=== PATIENT | male | born 1960 | race Caucasian/White ===

== ENCOUNTER 2018-12-01 12:29 | Day surgery (SDC) | payer BC ==
[2018-12-01 09:49] LABS: Absolute Lymphocytes (CBC) 1.1 K/uL (0.7-4.9); Absolute Monocytes 0.5 K/uL (0.1-1.3); Absolute Neutrophil 2.5 K/uL (1.8-8.0); Basophils % 0.9 % (0-1.3); Eosinophils % 3.3 % (0-4.4); Hematocrit 38.1 % (39.6-49.0); Lymphocytes % 25.9 % (15.3-44.8); MPV 8.6 fL (7.6-11.3); Monocytes % 12.3 % (3.3-12.3); RBC Red Blood Cell Count 4.08 M/uL (4.33-5.43)
[2018-12-01 09:52] LABS: BUN Blood Urea Nitrogen 17 mg/dL (7-18); Bicarbonate 31 mmol/L (21-32); Glucose Level 78 mg/dL (74-106); Potassium 4.3 mmol/L (3.5-5.1); Sodium Level 144 mmol/L (136-145)
--- NOTE | 2018-12-01 10:10 | RAD REPORT ---
EXAM DESCRIPTION: Samaria Ng (2 Views)12/01/2018 9:36 am CLINICAL HISTORY: Preop COMPARISON: 2010 FINDINGS: The lungs appear clear of acute infiltrate. The heart is normal size IMPRESSION: No acute abnormalities displayed
[2018-12-01] MEDS ORDERED: Ringers Lactate 1,000 ML IV ONE (12:50)
[2018-12-01] MEDS ORDERED: LIDOCAINE 2% MPF 5 ML VIAL ONE (14:07)
[2018-12-01] MEDS ORDERED: PROPOFOL 200 MG/20 ML VIAL IV ONE (14:07)
[2018-12-01] MEDS ORDERED: FENTANYL CITR 100 MCG/2 ML ONE (14:07)
[2018-12-01] MEDS ORDERED: MIDAZOLAM HCL 2 MG/2 ML INJ ONE (14:08)
[2018-12-01] MEDS ORDERED: ONDANSETRON 4 MG/2 ML VIAL ONE (14:11)
[2018-12-01] MEDS ORDERED: CEFAZOLIN/SWI 1gm 1 GM/10 ML SYR ONE (14:14)
[2018-12-01] MEDS: HYDROCODONE/APAP 7.5/325 MG TAB ONE ×2 (14:25→16:00)
--- NOTE | 2018-12-01 14:44 | P.BOP ---
Preoperative diagnosis: Prolapsed thrombosed necrotic external hemorrhoids Postoperative diagnosis: same, int and ext hemorrhoid Primary procedure: EUA. anoscopy, rigid proctoscopy, hemorrhoidectomy x 2 bundles Estimated blood loss: <10cc Specimen: hemorrhoid x2 Findings: see dictation Anesthesia: General Complications: None Transferred to: Recovery Room Condition: Good
[2018-12-01] MEDS: HYDROMORPHONE HCL 1 MG/ML INJ ONE ×2 (15:00→15:06)
[2018-12-01] MEDS: HYDROMORPHONE HCL 2 MG/ML inj ONE ×2 (15:12→15:20)
--- NOTE | 2018-12-01 15:18 | EKG ---
Test Date: 2018-12-01 Test Time: 09:25:20 Card Doffer: RISHI MEASUREMENT RESULTS: Intervals: Rate: 52 MI: 158 QRSD: 108 QT: 452 QTc: 420 [place]: P: MI: 158 QRS: 161 T: 148 INTERPRETIVE STATEMENTS: suspected arm lead reversal, please repeat ECG Sinus bradycardia Right axis deviation Right ventricular hypertrophy Abnormal ECG Compared to ECG 08/19/2010 19:31:23 Right-axis deviation now present Right ventricular hypertrophy now present Sinus rhythm no longer present all of these interval changes are likely due to arm lead reversal; Electronically Signed On 12-01-18 15:17:25 CDT by Devante Siegel
--- NOTE | 2018-12-02 01:27 | OP ---
Date of Procedure: 12/01/2018 Surgeon: Benson Haynes MD Preoperative Diagnosis: Prolapsed, thrombosed, necrotic external hemorrhoids. Postoperative Diagnoses: Prolapsed, thrombosed, necrotic external hemorrhoids plus internal and exte rnal hemorrhoids. Procedure Performed: Examination under anesthesia, anoscopy, rigid proctoscopy, and hemorrhoidectomy , 2 bundles. Specimens: Hemorrhoids x2. Anesthesia: General plus local. Findings: The patient has different hemorrhoids, internal and external, large, but there are 2 bundl es that have catched our attention, one of them in the right posterolateral area, the patient previou sly have an I and D done about 24 hours ago by the glue sprayer, but still partially thrombosed there with a large clot still present. On the left posterolateral, the patient has a hemorrhoid wit h necrotic skin on top, also thrombosed. Both of them were removed. Indications: This is the case of a 58-year-old patient, comes to us with perianal pain, perianal bul ging, bleeding, tenderness. The patient went to the glue sprayer yesterday. They are trying t o the remove the thrombus from one of the hemorrhoids, but it was so large that they send the patient to my office after attempting. The patient fully explained the need for examination under anesthesi a, anoscopy, proctoscopy, hemorrhoidectomy with benefits, alternatives, and risks including, but not limited to infection, bleeding, damage to adjacent structures, anesthesia complication, anal strictur e, anal incontinence, bowel perforation, CT, and even . He also understands this may not reliev e any symptoms, he might need more than one surgical intervention. He understood and signed a consen t. He understands chronic hemorrhoidal problems that may require some changes in his lifestyles incl uding losing weight, diet, and he also should follow with the glue sprayer in the future. He s igned a consent. Description Of Procedure: The patient was brought to the operating room, placed in supine position. Anesthesia was given without complication. The patient was placed in lateral decubitus position wit h proper protection. A rectal examination was done followed by rigid proctoscopy after time-out was done. We advanced all the way about to 15 cm. We noticed internal and external hemorrhoids with the findings described above. An anoscope with a window in the side was once again placed in that area with the findings as stated above. We have partially thrombosed the standard prolapsed hemorrhoid on the right side with an incision as soon done by the glue sprayer and on the left side, we have also prolapsed thrombosed hemorrhoids, at this time with gangrenous changes in the skin with necroti c tissue. One of them will be removed. We proceeded to open the anoderm, each one individually and the hemorrhoid from the sphincter and then transected that with a Harmonic Scalpel. After that, we proceeded to closely approximate the area with 0 chromic. Local anesthesia was applied befo re closure. The patient tolerated the procedure well. The area was covered with a Surgicel over neyda t region. Sponge count and instrument counts were correct. The patient was sent to recovery in stab le condition. Disposition: Home. The patient will be getting more pain and discomfort, so we are going to give hi m Vicodin q.4 hours p.r.n. pain. Sitz baths q.i.d. and after every bowel movement. Flagyl 500 mg p. o. q.6. Follow up in my office in 1 week. DARREN/TACHO Voice ID: [id number] Report ID: [id number]
== END 2018-12-01 16:44 | disposition home or self-care (01) ==
LOC: OR 12:29
PROVIDERS: ATTEND Surgery
PROC: 06BY4ZC Excision of Hemorrhoidal Plexus, Percutaneous Endoscopic Approach (ICD-10-PCS; principal; 2018-12-01 13:45)
DX: K64.5 Perianal venous thrombosis (principal); K64.8 Other hemorrhoids; K64.4 Residual hemorrhoidal skin tags
CPT/HCPCS: 36415; 71046; 80048; 85025; 88302; 88304; 93005; J0690; J1170; J2250; J2405; J2704; J3010

== ENCOUNTER 2019-01-24 06:44 | Day surgery (SDC) | payer BC ==
[2019-01-24] MEDS ORDERED: Ringers Lactate 1,000 ML IV ONE (07:05)
[2019-01-24] MEDS ORDERED: PROPOFOL 200 MG/20 ML VIAL IV ONE ×2 (08:29)
[2019-01-24] MEDS ORDERED: LIDOCAINE 1% MPF 5 ML VIAL ONE (08:29)
--- NOTE | 2019-01-25 03:47 | ENDO RPT ---
[address], [address] COLONOSCOPY PROCEDURE REPORT EXAM DATE: 01/24/2019 PATIENT NAME: Stephon Zaragoza MR #: [id number] BIRTHDATE: 1960 ATTENDING: Benson Haynes MD STATUS: outpatient METER READER INSPECTOR: Tomas Madden RN, Janelle Quinn, and Aline Sierra RN INDICATIONS: The patient is a 58 yr old Male here for a colonoscopy due to colon cancer screening and personal history of colon polyps PROCEDURE PERFORMED: Colonoscopy with biopsy - cold polypectomy and Colonoscopy with hot biopsy polypectomy MEDICATIONS: Per Anesthesia. ESTIMATED BLOOD LOSS: None CONSENT: The patient understands the risks and benefits of the procedure and understands that these risks include, but are not limited to: sedation, allergic reaction, infection, perforation and/or bleeding. Alternative means of evaluation and treatment include, among others: physical exam, x-rays, and/or surgical intervention. The patient elects to proceed with this endoscopic procedure. DESCRIPTION OF PROCEDURE: During intra-op preparation period all mechanical medical equipment was checked for proper function. Hand hygiene and appropriate measures for infection prevention was taken. Procedure, possible complications, alternatives including, but not limited to possibility of bleeding, perforation, tear, infection, sepsis, need for surgery, need for blood transfusion, were explained to the patient. After the risks, benefits and alternatives of the procedure were thoroughly explained, Informed consent was verified, confirmed and timeout was successfully executed by the treatment team. The patient was placed in the left lateral position. A digital rectal exam was performed and revealed external hemorrhoids. After appropriate level of anesthesia, the scope was passed. The EC-[id number] ([id number]) endoscope was introduced through the anus and advanced to the cecum, which was identified by transillumination from the light source, the appendix, and the ileocecal valve. The instrument was then slowly withdrawn as the colon was fully examined. Scope withdrawal time was . COLON FINDINGS: A sessile polyp was found about 30cm from anal verge less than 0.3 cm in size. Retroflexed views revealed no abnormalities. The scope was then completely withdrawn from the patient and the procedure terminated. ADVERSE EVENTS: There were no complications. IMPRESSIONS: 1. Sessile polyp ranging between 3-5mm in size was found; polypectomy was performed using hot forceps 2. Scattered diverticulum 3. External hemorrhoids 4. Internal hemorrhoids RECOMMENDATIONS: 1. await biopsy results 2. follow-up: office 1 week(s) 3. no seeds in diet 4. await biopsy results RECALL: for Colonoscopy, pending biopsy results. Benson Haynes MD eSigned: Benson Haynes MD 01/24/2019 9:40 AM cc: CPT CODES: ICD9 CODES: PATIENT NAME: Stephon Zaragoza MR#: [id number]
== END 2019-01-24 10:12 | disposition home or self-care (01) ==
LOC: OR 06:44
PROVIDERS: ATTEND Surgery
PROC: 0DBN8ZX Excision of Sigmoid Colon, Via Natural or Artificial Opening Endoscopic, Diagnostic (ICD-10-PCS; principal; 2019-01-24 07:30)
DX: Z12.11 Encounter for screening for malignant neoplasm of colon (principal); D12.5 Benign neoplasm of sigmoid colon; K57.30 Diverticulosis of large intestine without perforation or abscess without bleeding; K64.8 Other hemorrhoids; K64.4 Residual hemorrhoidal skin tags
CPT/HCPCS: 88305; J2704